=== PATIENT | female | born 1950 ===

== ENCOUNTER 2019-04-12 06:16 | Day surgery (SDC) | payer BC, MEDICARE ==
--- NOTE | 2019-04-09 12:58 | HP ---
PREOPERATIVE HISTORY AND PHYSICAL: DATE OF ADMISSION/SURGERY: 04/12/19 [facility] DATE OF OFFICE VISIT/ENCOUNTER: 04/04/19 ATTENDING SURGEON: Juany Ayala MD * (DICTATED BY SONU TAYLOR) PROCEDURE: Excision mass, right small finger. HISTORY OF PRESENT ILLNESS: This is a 68-year-old female who complains of a lump on the dorsal aspect of her right small finger. The mass has been present for approximately 3 months. She does not recall any injury. She has moderate pain associated with the lump, particularly when she hits it on something. At rest, it is minimally painful. She denies any associated numbness or tingling. She would like to have the lump removed and has consented for surgical excision. PAST MEDICAL HISTORY: 1. History of depression/anxiety. 2. Seasonal allergies. 3. Irritable bowel syndrome. 4. History of a mid systolic click. 5. History of asthma. PAST SURGICAL HISTORY: 1. Hysterectomy. 2. Virectomy 3. Bilateral cataract removal. CURRENT MEDICATIONS: 1. Alprazolam 0.25 mg 1 tab up to 3 times a day as needed for anxiety. 2. Citracal calcium plus D slow release daily. 3. Fluticasone propionate 1 spray each nostril daily as needed. 4. Janet root. 5. Levsin 0.125 mg 1 tab q.4 hours as needed. 6. ProAir inhaler 1 puff q.6 hours as needed. 7. Probiotic 1 tab daily. 8. Voltaren 1% apply 4 grams to affected area 3 to 4 times daily. 9. Zyrtec Allergy 10 mg as needed for allergy symptoms. ALLERGIES: No known drug allergies. FAMILY MEDICAL HISTORY: Noncontributory. 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. She is a former smoker. She quit in 1989. Prior to that, she smoked half a pack per day for 20 years off and on. She denies recreational drug use. She drinks alcohol on occasion. REVIEW OF SYSTEMS: Negative for general, cephalic, cardiovascular, respiratory , GI, , other musculoskeletal, integumentary, endocrine, neurologic, and hematologic symptoms. Infectious Disease: Negative for MRSA, hepatitis C, HIV. PHYSICAL EXAMINATION GENERAL: A well-developed, well-nourished 68-year-old female, in no acute distress. VITAL SIGNS: Height 5 feet 2 inches, weight 145 pounds. Pulse rate 80, blood pressure 132/70. HEENT: Normocephalic, atraumatic. Pupils are equal, round, and reactive to light and accommodation. Extraocular movements are intact. Throat is clear. NECK: Supple. No palpable lymph nodes. PULMONARY: Lungs are clear to auscultation bilaterally. No wheezes, rales, or rhonchi. CARDIOVASCULAR: Regular rate and rhythm. S1, S2. No murmurs, rubs, or gallops. No edema. ABDOMEN: Positive bowel sounds. Soft, nontender. NEUROLOGICAL: Alert and oriented x3. Cranial nerves II through XII are intact. Sensation is intact to light touch. MUSCULOSKELETAL: On exam of her right small finger, there is a mucous cyst on the dorsal aspect at the DIP joint. It is tender to palpation. There is no surrounding erythema. No sign of infection. She has slight decrease in range of motion and flexion of that finger at the DIP joint. She has good extension. Neurovascular function is intact. Skin is intact. 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 IMPRESSION: Mucous cyst, right little finger. PLAN: The patient is scheduled to undergo an excision mass, right small finger , with Dr. Ayala on 04/12/19. She will return to the office 10 days postop for followup and suture removal. A prescription for Ultracet was e-scribed to the patient's pharmacy for postoperative pain management. SONU TAYLOR [id number]/[facility] #: [id number] PROSPER
[~2019-04-12 06:16] MED LIST: Buffered Lidocaine 1% SYRIN* 1 ML/SYRINGE INTRADERM ONE; Lactated Ringers 1000 ML Bag* 1,000 ML IV SCH
[2019-04-12] MEDS ORDERED: Lidocaine 1% INJ* 10 MG/ML 30 ML SDV ONE (07:21)
[2019-04-12] MEDS ORDERED: Propofol* 10 MG/ML 20 ML BTL ONE (07:38)
[2019-04-12] MEDS ORDERED: Lidocaine 2% PF * 5 ML VIAL ONE (07:38)
[2019-04-12] MEDS ORDERED: Naloxone* 0.4 MG/ML 1 ML VIAL IV PRN (07:45)
[2019-04-12 10:53] VITALS: BP 132/79
--- NOTE | 2019-04-12 14:00 | OP ---
DATE OF OPERATION: 04/12/19 [facility] DATE OF : 46 SURGEON: Juany Ayala MD [employer] SERVICE TECHNICIAN: SONU Morris ANESTHESIA: Local MAC. PRE-OP DIAGNOSIS: Mucous cyst, right small finger. POST-OP DIAGNOSIS: Mucous cyst, right small finger. OPERATIVE PROCEDURE: Removed mucous cyst, right small finger. ESTIMATED BLOOD LOSS: Zero. TOURNIQUET TIME: About 15 minutes. INDICATIONS FOR PROCEDURE: Julia is a 69-year-old female who has a painful mass on the dorsal aspect of her right little finger; clinically it is a mucous cyst. She presents for removal. DESCRIPTION OF PROCEDURE: The patient was brought to the operating room, was given a sedation anesthetic, and a digital block with 10 cc of 1% plain lidocaine applied to the right small finger. Skin of her right hand and forearm was prepped and draped in usual sterile fashion. The hand and forearm were exsanguinated and the tourniquet elevated to 250 mmHg. An H-shaped incision was made centered over the DIP joint of the right small finger. We dissected skin flaps up over the ganglion cyst. The cyst was removed with its connection to the IP joint. Both sides of the extensor tendon were incised longitudinally and the underlying osteophytes removed with a rongeur. The wound was irrigated, the skin edges reapproximated with 4-0 nylon suture. The wound was dressed with Xeroform, 4x4, Kerlix and Coban. The patient tolerated the procedure well and was brought to the recovery room in good condition. [id number]/[facility] #: [id number] MTDD
== END 2019-04-12 08:46 | disposition home or self-care (01) ==
LOC: OREAST 06:16
PROVIDERS: ATTEND Orthopaedic Surgery
DX: L72.0 Epidermal cyst (principal); F41.8 Other specified anxiety disorders; K58.9 Irritable bowel syndrome, unspecified; J45.909 Unspecified asthma, uncomplicated
CPT/HCPCS: 88304; J2704